=== PATIENT | male | born 1955 | race Caucasian/White ===

== ENCOUNTER 2020-03-12 13:49 | Inpatient (IN) | payer MEDICAID ==
[2020-03-12] MEDS ORDERED: Sodium Chloride 0.9% 10 ML Syringe FLUSH PRN (14:19)
--- NOTE | 2020-03-12 14:28 | EDM.PDOC ---
ED HPI GENERAL MEDICAL PROBLEM - General Chief Complaint: Diabetic Complaint Stated Complaint: HIGH BLOOD SUGAR SENT BY ARTEMIO Time Seen by Provider: 03/12/20 14:01 Source of Information: Reports: Patient History Limitations: Reports: No Limitations - History of Present Illness INITIAL COMMENTS - FREE TEXT/NARRATIVE: The patient presents from the walk in clinic for hyperglycemia. His blood sugar was elevated at 735. He says this all started about 3 weeks ago. He noticed he was thirsty and urinating a lot. He went to the clinic today because he thought he had trouble with his prostate. He was urinating so much. He also has been very weak, tired and short of breath at times. He has no medical problems. He had a hemorrhoidectomy a couple years ago. He has 2 brothers who have diabetes. He is not sure what type. One takes shots and the other does not. He has no fever, chills, cough, congestion, runny nose, chest pain, shortness of breath, abdominal pain, nausea or vomiting. Onset: Gradual Duration: Week(s): Severity: Moderate Improves with: Reports: None Worsens with: Reports: None Associated Symptoms: Reports: No Other Symptoms - Related Data Allergies Allergy/AdvReac Type Severity Reaction Status Date / Time morphine Allergy Nausea and Verified 03/12/20 14:06 Vomiting Home Meds: Home Meds . [No Known Home Meds] 03/12/20 [History] Social & Family History - Tobacco Use Smoking Status *Q: Never Smoker ED ROS GENERAL - Review of Systems Review Of Systems: See Below Constitutional: Reports: Weakness, Fatigue. Denies: Fever, Chills HEENT: Reports: No Symptoms Respiratory: Reports: No Symptoms Cardiovascular: Reports: No Symptoms Endocrine: Reports: Fatigue, High Glucose, Polydypsia, Polyuria GI/Abdominal: Reports: No Symptoms : Reports: No Symptoms Musculoskeletal: Reports: No Symptoms ED EXAM GENERAL NO PERIP PULSE - Physical Exam Exam: See Below Exam Limited By: No Limitations General Appearance: Alert, No Apparent Distress Ears: Normal External Exam Nose: Normal Inspection Head: Atraumatic, Normocephalic Neck: Normal Inspection Respiratory/Chest: No Respiratory Distress, Lungs Clear, Normal Breath Sounds Cardiovascular: Regular Rate, Rhythm, No Edema, No Murmur GI/Abdominal: Soft, Non-Tender, No Organomegaly, No Mass Course - Vital Signs Last Recorded V/S: Last Vital Signs Temp 97.1 F 03/12/20 14:02 Pulse 82 03/12/20 14:02 Resp 16 03/12/20 14:02 BP 156/96 H 03/12/20 14:02 Pulse Ox 96 03/12/20 14:02 - Orders/Labs/Meds Orders: Active Orders 24 hr Category Date Time Status Peripheral IV Care [RC] . DIRECTED Care 03/12/20 14:19 Active Lactated Ringers [Ringers, Lactated] 1,000 ml Med 03/12/20 15:32 Active IV .BOLUS Lactated Ringers [Ringers, Lactated] 1,000 ml Med 03/12/20 14:30 Active IV ASDIRECTED Sodium Chloride 0.9% [Saline Flush] Med 03/12/20 14:19 Active 10 ml FLUSH ASDIRECTED PRN Peripheral IV Insertion Adult [OM.PC] Stat Oth 03/12/20 14:19 Ordered Medication Orders Lactated Ringer's (Ringers, Lactated) 1,000 mls @ 1,000 mls/hr IV ASDIRECTED REKHA Last Admin: 03/12/20 14:39 Dose: 1,000 mls/hr Documented by: ANGELIC Lactated Ringer's (Ringers, Lactated) 1,000 mls @ 1,000 mls/hr IV .BOLUS ONE Stop: 03/12/20 16:31 Last Admin: 03/12/20 15:40 Dose: 1,000 mls/hr Documented by: ANGELIC Sodium Chloride (Saline Flush) 10 ml FLUSH ASDIRECTED PRN PRN Reason: Keep Vein Open Last Admin: 03/12/20 14:30 Dose: 10 ml Documented by: ANGELIC Labs: Laboratory Tests 03/12/20 03/12/20 03/12/20 Range/Units 14:28 14:28 14:37 VBG pH 7.37 (7.30-7.40) Serum Osmolality 326 H (280-300) mosm/kg Ketones 5.51 (0.0-0.3) mM COVID-19 (ANGELI) (NEGATIVE) 03/12/20 Range/Units 14:40 VBG pH (7.30-7.40) Serum Osmolality (280-300) mosm/kg Ketones (0.0-0.3) mM COVID-19 (ANGELI) Negative (NEGATIVE) Meds: Medications Generic Name Dose Route Start Last Admin Trade Name Raheelq PRN Reason Stop Dose Admin Lactated Ringer's 1,000 mls @ 1,000 mls/hr 03/12/20 14:30 03/12/20 14:39 Ringers, Lactated IV 1,000 mls/hr ASDIRECTED REKHA Administration Lactated Ringer's 1,000 mls @ 1,000 mls/hr 03/12/20 15:32 03/12/20 15:40 Ringers, Lactated IV 03/12/20 16:31 1,000 mls/hr .BOLUS ONE Administration Sodium Chloride 10 ml 03/12/20 14:19 03/12/20 14:30 Saline Flush FLUSH 10 ml ASDIRECTED PRN Administration Keep Vein Open - Re-Assessments/Exams Free Text/Narrative Re-Assessment/Exam: 03/12/20 16:12 I ordered an IV LR 2L bolus, labs and venous pH. His blood sugar from the clinic was 735. His creatinine was elevated at 1.78. His anion gap was elevated at 25. His Hgb A1c was >14. His UA shows glucose and ketones. 03/12/20 16:14 His pH is 7.37. His ketones are elevated at 5.51. His serum osmolality is 326. I feel he needs to be admitted. I called Dr Sandhu and she will come see the patient. Departure - Departure Time of Disposition: 16:20 Disposition: Admitted As Inpatient 68 Condition: Serious Clinical Impression: Hyperglycemia, Hyperosmolar syndrome, New onset type 2 diabetes mellitus - Discharge Information Referrals: PCP,None [Primary Care Provider] - Forms: ED Department Discharge Sepsis Event Note (ED) - Evaluation Sepsis Screening Result: No Definite Risk - Focused Exam Vital Signs: Vital Signs Temp Pulse Resp BP Pulse Ox 03/12/20 14:02 97.1 F 82 16 156/96 H 96 - My Orders Last 24 Hours: My Active Orders 03/12/20 14:19 Peripheral IV Care [RC] . DIRECTED Sodium Chloride 0.9% [Saline Flush] 10 ml FLUSH ASDIRECTED PRN Peripheral IV Insertion Adult [OM.PC] Stat 03/12/20 14:30 Lactated Ringers [Ringers, Lactated] 1,000 ml IV ASDIRECTED 03/12/20 15:32 Lactated Ringers [Ringers, Lactated] 1,000 ml IV .BOLUS - Assessment/Plan Last 24 Hours: My Active Orders 03/12/20 14:19 Peripheral IV Care [RC] . DIRECTED Sodium Chloride 0.9% [Saline Flush] 10 ml FLUSH ASDIRECTED PRN Peripheral IV Insertion Adult [OM.PC] Stat 03/12/20 14:30 Lactated Ringers [Ringers, Lactated] 1,000 ml IV ASDIRECTED 03/12/20 15:32 Lactated Ringers [Ringers, Lactated] 1,000 ml IV .BOLUS
[2020-03-12] MEDS ORDERED: Lactated Ringers 1,000 ML IV SCH (14:30)
[2020-03-12] MEDS ORDERED: Lactated Ringers 1,000 ML IV ONE (15:32)
[2020-03-12] MEDS ORDERED: Insulin Regular, Human 100 Units/ML 3 ML Vial IV ONE ×2 (16:41→16:46)
--- NOTE | 2020-03-12 17:33 | PCM.HP.2 ---
H&P History of Present Illness - General Date of Service: 03/12/20 Admit Problem/Dx: Admission Diagnosis/Problem Admission Diagnosis/Problem Hyperosmolar non-ketotic state in patient with type 2 diabetes mellitus - History of Present Illness Initial Comments - Free Text/Narative: This is a 64-year-old male with no past medical history comes to the emergency department referred from outpatient clinic after being found with severe hyperglycemia. As per patient for the past week or so he has been having severe polydipsia and polyuria associated with weight loss and fatigue for which brother has been telling him to see somebody however he did not follow this recommendation until today States he did have one episode of vomiting Denies fever, chills, chest pain, palpitations, shortness of breath, cough, sputum production, indigestion, constipation, diarrhea, painful burning ur ination, rashes. - Related Data Allergies/Adverse Reactions: Allergies Allergy/AdvReac Type Severity Reaction Status Date / Time morphine AdvReac Nausea and Verified 03/12/20 16:46 Vomiting Home Medications: Home Meds . [No Known Home Meds] 03/12/20 [History] Social & Family History - Tobacco Use Smoking Status *Q: Never Smoker H&P Review of Systems - Review of Systems: Review Of Systems: See Below General: Reports: Malaise, Weakness, Fatigue, Weight Loss. Denies: Fever, Chills, Night Sweats, Diaphoresis, Decreased Appetite, Weight Gain HEENT: Denies: Post Nasal Drip, Sinus Congestion, Sore Throat, Vertigo, Visual Changes Pulmonary: Denies: Shortness of Breath, Wheezing, Pleuritic Chest Pain, Cough, Sputum, Hemoptysis Cardiovascular: Denies: Chest Pain, Palpitations, Dyspnea on Exertion, Orthopnea, PND, Edema, Lightheadedness, Syncope, Claudication Gastrointestinal: Reports: Decreased Appetite, Nausea, Vomiting. Denies: Abdominal Pain, Anorexia, Constipation, Diarrhea, Distension, Flatus, Hematemesis, Hematochezia Genitourinary: Reports: Frequency. Denies: Dysuria, Burning, Pain, Urgency, Incontinence, Hematuria, Discharge Musculoskeletal: Denies: Joint Pain, Joint Swelling, Muscle Pain, Muscle Stiffness Skin: Denies: Cyanosis, Jaundice, Mottled, Pallor Psychiatric: Denies: Depression, Mood Lability, Anxiety Neurological: Denies: Dizziness, Headache, Numbness, Paresthesia Hematologic/Lymphatic: Denies: Easy Bleeding, Easy Bruising Exam - Exam Exam: See Below - Vital Signs Vital Signs: Last Vital Signs Temp 97.1 F 03/12/20 14:02 Pulse 82 03/12/20 14:02 Resp 16 03/12/20 14:02 BP 156/96 H 03/12/20 14:02 Pulse Ox 96 03/12/20 14:02 Weight: 77.111 kg - Exam General: Alert, Oriented, Cooperative. No: Mild Distress HEENT: Conjunctiva Clear, EACs Clear, EOMI, Hearing Intact. No: Mucosa Moist & Peck (dry without lesions) Neck: Supple, Trachea Midline, +2 Carotid Pulse wo Bruit, Full Range of Motion. No: Lymphadenopathy Lungs: Clear to Auscultation, Normal Respiratory Effort. No: Decreased Breath Sounds, Crackles, Rales, Rhonchi, Rub, Stridor, Wheezing Cardiovascular: Regular Rate, Regular Rhythm. No: Systolic Murmur, Diastolic Murmur, Rubs, Gallop/S3, Gallop/S4 GI/Abdominal Exam: Normal Bowel Sounds, Soft, Non-Tender, No Organomegaly. No: Distended, Guarding, Rigid, Rebound Extremities: Normal Inspection, Normal Range of Motion, Non-Tender, No Pedal Edema, Normal Capillary Refill Peripheral Pulses: 2+: Radial (L), Radial (R), Dorsalis Pedis (L), Dorsalis Pedis (R) Skin: Warm, Dry Neuro Extensive - Mental Status: Oriented x3 Psychiatric: Alert, Normal Affect, Normal Mood - Patient Data Result Diagrams: 03/12/20 14:28 Sepsis Event Note - Evaluation Sepsis Screening Result: No Definite Risk - Problem List (1) Ketosis SNOMED Code(s): 8045061 ICD Code: E88.89 - OTHER SPECIFIED METABOLIC DISORDERS Status: Acute Current Visit: Yes (2) Acute kidney injury SNOMED Code(s): 68181197, 60576000 ICD Code: N17.9 - ACUTE KIDNEY FAILURE, UNSPECIFIED Status: Acute Current Visit: Yes (3) Hyperosmolar syndrome SNOMED Code(s): 64443670, 71298823 ICD Code: E87.0 - HYPEROSMOLALITY AND HYPERNATREMIA Status: Acute Current Visit: Yes (4) New onset type 2 diabetes mellitus SNOMED Code(s): 38882381 ICD Code: E11.9 - TYPE 2 DIABETES MELLITUS WITHOUT COMPLICATIONS Status: Acute Current Visit: Yes Problem List Initiated/Reviewed/Updated: Yes Assessment/Plan Comment:: ASSESSMENT No past medical history Came in with a week of polyuria, polydipsia, weight loss and fatigue Went to outpatient clinic where blood work was performed, Glucose 735, chloride 89, CO2 27, BUN 24, creatinine 1.78, GFR 39, anion gap of 25 Glucosuria above 540 ketones in urine Hemoglobin A1c greater than 14 Sent to the emergency department for management Upon arrival to the emergency department patient had a blood pressure of 156/96, heart rate of 82, temp 97.1, pulse ox 96% Found to be volume depleted Given 2 L of LR New labs were obtained with an osmolality of 326, ketones of 5.51 and a venous pH of 7.37 Meets criteria for HHS without acidosis Patient with mild hypovolemia and normal corrected sodium, K normal PLAN Patient with mild hypovolemia and normal corrected sodium Continue half NS at 250 mL's per hour as patient is not severely dehydrated When serum glucose reaches 300 will change to 5% dextrose with half NS at 150 mL's per hour 30 mEq of KCl will be added to each liter of IV fluids with a goal K level be tween 4 and 5 mEq 0.1 units/kg insulin IV bolus 0.1 units/kg/h IV insulin drip Once serum glucose reaches 300 will reduce insulin drip to 0.02 units/kg/h Goal glucose between 250 and 300 Check BMP, mag and false every 4 hours Accu-Chek every hour Continue IV insulin drip for 2 to 4 hours after SQ insulin has been started to ensure adequate plasma insulin levels Since patient is insulin naive will start insulin at 0.5units/kg/day Lipid panel in AM Spot protein and creatinine in urine NPO PROPHYLAXIS DVTcompression stockings GInot indicated CODE STATUS: FULL CODE DISPOSITION: Patient will be admitted to ICU for insulin drip, and HHS protocol. Will start on subcutaneous insulin when indicated and start patient on diet, after this he may be transferred out of the ICU to medical floor Hospital stay likely between 48 to 72 hours. - Mortality Measure Prognosis:: Good
[2020-03-12] MEDS ORDERED: Ondansetron 4 MG/2 ML SDV IV PRN (18:30)
[2020-03-12] MEDS ORDERED: Ondansetron 4 MG Tab.DIS PO PRN (18:30)
[2020-03-12] MEDS: D5 1/2 NS w/ 20 mEq/L KCl 1,000 ML IV SCH (19:31)
[2020-03-12] MEDS ORDERED: Insulin Glarg,Human.Rec.Analog 100 Unit/ML SUBCUT SCH (21:00)
[2020-03-12] MEDS ORDERED: Cyclobenzaprine 10 MG Tab PO PRN (21:10)
[2020-03-13] MEDS ORDERED: Sodium Chloride 0.45% with KCl 1,000 ML IV SCH (02:45)
[2020-03-13] MEDS: D5 1/2 NS w/ 20 mEq/L KCl 1,000 ML IV SCH (05:03)
[2020-03-13] MEDS: Insulin Lispro 100 Units/ML 3 ML Vial SUBCUT SCH ×3 (07:55→17:41)
[2020-03-13] MEDS ORDERED: Acetaminophen 325 MG Tab PO PRN (10:15)
[2020-03-13] MEDS ORDERED: Insulin Glarg,Human.Rec.Analog 100 Unit/ML SUBCUT ONE (10:30)
[2020-03-13] MEDS ORDERED: Potassium Phosphates 30 MMOLE in Sodium Chloride 0.9% 500 ML IV ONE (10:30)
[2020-03-13] MEDS ORDERED: Insulin Lispro 100 Units/ML 3 ML Vial SUBCUT STA ×2 (15:08→15:16)
--- NOTE | 2020-03-13 19:18 | PCM.PN ---
- General Info Date of Service: 03/13/20 Subjective Update: Slept OK BM yesterday No complaints - Patient Data Vitals - Most Recent: Last Vital Signs Temp 97 F 03/13/20 16:00 Pulse 82 03/12/20 14:02 Resp 18 03/13/20 16:00 BP 117/79 03/13/20 16:00 Pulse Ox 98 03/13/20 16:00 Weight - Most Recent: 77.111 kg - Exam General: Alert, Oriented, Cooperative, No Acute Distress HEENT: Pupils Equal, Pupils Reactive, EOMI, Mucous Membr. Moist/[place] Neck: Supple, Trachea Midline, No JVD, No Thyromegaly, +2 Carotid Pulse wo Bruit. No: Lymphadenopathy Lungs: Clear to Auscultation, Normal Respiratory Effort. No: Decreased Breath Sounds, Crackles, Rales, Rhonchi, Rub, Stridor, Wheezing Cardiovascular: Regular Rate, Regular Rhythm. No: Murmurs, Gallops, Rubs GI/Abdominal Exam: Normal Bowel Sounds, Soft, Non-Tender, No Organomegaly. No: Distended, Guarding, Rigid, Rebound Back Exam: Normal Inspection, Full Range of Motion. No: CVA Tenderness (L), CVA Tenderness (R) Extremities: Normal Inspection, Normal Range of Motion, Non-Tender, No Pedal Edema, Normal Capillary Refill Peripheral Pulses: 2+: Radial (L), Radial (R), Dorsalis Pedis (L), Dorsalis Pedis (R) Skin: Warm, Dry Neurological: No New Focal Deficit Psy/Mental Status: Normal Affect, Normal Mood Sepsis Event Note - Evaluation Sepsis Screening Result: No Definite Risk - Problem List & Annotations (1) New onset type 2 diabetes mellitus SNOMED Code(s): 94888428 Code(s): E11.9 - TYPE 2 DIABETES MELLITUS WITHOUT COMPLICATIONS Status: Acute Current Visit: Yes (2) Hypophosphatemia SNOMED Code(s): 4243834 Code(s): E83.39 - OTHER DISORDERS OF PHOSPHORUS METABOLISM Status: Acute Current Visit: Yes (3) Dyslipidemia SNOMED Code(s): 425347602 Code(s): E78.5 - HYPERLIPIDEMIA, UNSPECIFIED Status: Acute Current Visit: Yes (4) Ketosis SNOMED Code(s): 6618972 Code(s): E88.89 - OTHER SPECIFIED METABOLIC DISORDERS Status: Acute Current Visit: Yes (5) Acute kidney injury SNOMED Code(s): 76676066, 97923773 Code(s): N17.9 - ACUTE KIDNEY FAILURE, UNSPECIFIED Status: Acute Current Visit: Yes (6) Hyperosmolar syndrome SNOMED Code(s): 44760027, 31268952 Code(s): E87.0 - HYPEROSMOLALITY AND HYPERNATREMIA Status: Acute Current Visit: Yes (7) Hypertension SNOMED Code(s): 34887929 Code(s): I10 - ESSENTIAL (PRIMARY) HYPERTENSION Status: Acute Current Visit: Yes - Problem List Review Problem List Initiated/Reviewed/Updated: Yes - Assessment Assessment:: Admission 03/12/20 No past medical history Came in with a week of polyuria, polydipsia, weight loss and fatigue Went to outpatient clinic where blood work was performed, Glucose 735, chloride 89, CO2 27, BUN 24, creatinine 1.78, GFR 39, anion gap of 25 Glucosuria above 540 ketones in urine Hemoglobin A1c greater than 14 Sent to the emergency department for management Upon arrival to the emergency department patient had a blood pressure of 156/96, heart rate of 82, temp 97.1, pulse ox 96% Found to be volume depleted Given 2 L of LR New labs were obtained with an osmolality of 326, ketones of 5.51 and a venous pH of 7.37 Meets criteria for HHS without acidosis Patient with mild hypovolemia and normal corrected sodium, K normal PLAN Patient with mild hypovolemia and normal corrected sodium Continue half NS at 250 mL's per hour as patient is not severely dehydrated When serum glucose reaches 300 will change to 5% dextrose with half NS at 150 mL's per hour 30 mEq of KCl will be added to each liter of IV fluids with a goal K level between 4 and 5 mEq 0.1 units/kg insulin IV bolus 0.1 units/kg/h IV insulin drip Once serum glucose reaches 300 will reduce insulin drip to 0.02 units/kg/h Goal glucose between 250 and 300 Check BMP, mag and false every 4 hours Accu-Chek every hour Continue IV insulin drip for 2 to 4 hours after SQ insulin has been started to ensure adequate plasma insulin levels Since patient is insulin naive will start insulin at 0.5units/kg/day Lipid panel in AM Spot protein and creatinine in urine NPO 03/13/20 VS trend BP 139-148/71-74 HR 73-80 Tmax 98.8 SatO2 > 96% on RA Labs: WBC is down from 9.23-8.37 Sodium up from 134-139 GFR up from 39 to greater than 60 Glucose down from 735-211 Phosphorus down from 3.2-2.1 Magnesium stable at 1.8 Lipid panel: Cholesterol 184, LDL 124, HDL 45, triglycerides 88 Ketones down from 5.51-0.01 Insulin drip and off at 9: 45 AM ASCVD risk is 23.4% Off insulin drip and started on diet Insulin regimen: 24u Lantus and 4u Lispro - Plan Plan:: New onset diabetes mellitus, HbA1c > 14% 30 units at bedtime of Lantus, give 6 units now 4 units of lispro before meals plug assembler Glucose checks before meals and 2 hours after each meal Patient education Microalbumin and creatinine and urine ROGER 65 antibodies Diabetic diet Malnutrition screen Discontinue IVF Hypophosphatemia Potassium phosphate 30 mmol IV stat Dyslipidemia Start rosuvastatin 20 mg daily Hyperosmolar state, resolved Diabetic ketoacidosis, resolved Acute kidney injury, resolved PROPHYLAXIS DVTambulation GInot indicated CODE STATUS: FULL CODE DISPOSITION: Patient will remain admitted for insulin adjustments. plug assembler in AM.
[2020-03-13] MEDS ORDERED: Insulin Glarg,Human.Rec.Analog 100 Unit/ML SUBCUT SCH (21:00)
[2020-03-14] MEDS: Insulin Lispro 100 Units/ML 3 ML Vial SUBCUT SCH ×2 (06:33→11:51)
--- NOTE | 2020-03-14 13:46 | PCM.DCSUM1 ---
Discharge Summary - Hospital Course HPI Initial Comments: This is a 64-year-old male with no past medical history comes to the emergency department referred from outpatient clinic after being found with severe hyperglycemia. As per patient for the past week or so he has been having severe polydipsia and polyuria associated with weight loss and fatigue for which brother has been telling him to see somebody however he did not follow this recommendation until today States he did have one episode of vomiting Denies fever, chills, chest pain, palpitations, shortness of breath, cough, sputum production, indigestion, constipation, diarrhea, painful burning urination, rashes. Diagnosis: Stroke: No - Discharge Data Discharge Date: 03/14/20 Discharge Disposition: Home, Self-Care 01 Condition: Good - Referral to Home Health Primary Care Physician: PCP None - Patient Summary/Data Consults: Consultations 03/14/20 10:01 Consult to Diabetic Nurse Specialist [CONS] Routine Hospital Course: Admission 03/12/20 No past medical history Came in with a week of polyuria, polydipsia, weight loss and fatigue Went to outpatient clinic where blood work was performed, Glucose 735, chloride 89, CO2 27, BUN 24, creatinine 1.78, GFR 39, anion gap of 25 Glucosuria above 540 ketones in urine Hemoglobin A1c greater than 14 Sent to the emergency department for management Upon arrival to the emergency department patient had a blood pressure of 156/96, heart rate of 82, temp 97.1, pulse ox 96% Found to be volume depleted Given 2 L of LR New labs were obtained with an osmolality of 326, ketones of 5.51 and a venous pH of 7.37 Meets criteria for HHS without acidosis Patient with mild hypovolemia and normal corrected sodium, K normal PLAN Patient with mild hypovolemia and normal corrected sodium Continue half NS at 250 mL's per hour as patient is not severely dehydrated When serum glucose reaches 300 will change to 5% dextrose with half NS at 150 mL's per hour 30 mEq of KCl will be added to each liter of IV fluids with a goal K level between 4 and 5 mEq 0.1 units/kg insulin IV bolus 0.1 units/kg/h IV insulin drip Once serum glucose reaches 300 will reduce insulin drip to 0.02 units/kg/h Goal glucose between 250 and 300 Check BMP, mag and false every 4 hours Accu-Chek every hour Continue IV insulin drip for 2 to 4 hours after SQ insulin has been started to ensure adequate plasma insulin levels Since patient is insulin naive will start insulin at 0.5units/kg/day Lipid panel in AM Spot protein and creatinine in urine NPO 03/13/20 VS trend BP 139-148/71-74 HR 73-80 Tmax 98.8 SatO2 > 96% on RA Labs: WBC is down from 9.23-8.37 Sodium up from 134-139 GFR up from 39 to greater than 60 Glucose down from 735-211 Phosphorus down from 3.2-2.1 Magnesium stable at 1.8 Lipid panel: Cholesterol 184, LDL 124, HDL 45, triglycerides 88 Ketones down from 5.51-0.01 Insulin drip and off at 9: 45 AM ASCVD risk is 23.4% Off insulin drip and started on diet Insulin regimen: 24u Lantus and 4u Lispro 03/14/2020 -day of discharge - Blood sugars ranging from 137-274. -Lantus 30 units at bedtime -Increase Humalog to 8 units before meals -Seen by consumer educator today -Will be discharged with both long-acting and short acting insulin -Tolerating a diabetic diet well. - Patient Instructions Diet: Diabetic Diet Activity: As Tolerated Driving: Do Not Drive Showering/Bathing: May Shower Notify Provider of: Nausea and/or Vomiting Other/Special Instructions: Follow-up with your primary care provider next week. You will need outpatient diabetic education. Check blood sugars at least 4 times a day, before meals and bedtime, and anytime you do not feel well. - Discharge Plan *PRESCRIPTION DRUG MONITORING PROGRAM REVIEWED*: No *COPY OF PRESCRIPTION DRUG MONITORING REPORT IN PATIENT ELENA: No Prescriptions/Med Rec: Aspirin [Aspir 81] 81 mg PO DAILY #30 tablet. Rosuvastatin [Crestor] 10 mg PO DAILY #30 tab Pen Needle, Diabetic [Burtrum] 1 each MC QID #100 dis.needle Home Medications: Home Meds Aspirin [Aspir 81] 81 mg PO DAILY #30 tablet. 03/14/20 [Rx] Insulin Glarg,Human.Rec.Analog [Lantus] 30 unit SUBCUT BEDTIME #0 ml 03/14/20 [Rx] Insulin Lispro [HumaLOG] 8 unit SUBCUT TIDMEALS vial 03/14/20 [Rx] Pen Needle, Diabetic [Burtrum] 1 each QID #100 dis.needle 03/14/20 [Rx] Rosuvastatin [Crestor] 10 mg PO DAILY #30 tab 03/14/20 [Rx] Oxygen Therapy Mode: Room Air Patient Handouts: Type 2 Diabetes Mellitus, Diagnosis, Adult, Preventing Hypoglycemia, Diabetic Ketoacidosis, Hyperglycemia, [id number] Referrals: PCP,None [Primary Care Provider] - - Discharge Summary/Plan Comment DC Time >30 min.: Yes Discharge Summary/Plan Comment: Discharged home in good condition. Patient is from [place] and plans to fly home tomorrow. Follow-up with his primary care provider and consumer educator. - General Info Date of Service: 03/14/20 Admission Dx/Problem (Free Text: Admission Diagnosis/Problem Admission Diagnosis/Problem Hyperosmolar non-ketotic state in patient with type 2 diabetes mellitus Subjective Update: Patient states he is feeling well. Blood sugars have been adequately controlled with 1 blood sugar at 270 that was corrected. He has had diabetic education. Functional Status: Reports: Pain Controlled - Review of Systems General: Reports: No Symptoms HEENT: Reports: No Symptoms Pulmonary: Reports: No Symptoms Cardiovascular: Reports: No Symptoms Gastrointestinal: Reports: No Symptoms Musculoskeletal: Reports: No Symptoms Neurological: Reports: No Symptoms Psychiatric: Reports: No Symptoms - Patient Data Vitals - Most Recent: Last Vital Signs Temp 97.2 F 03/14/20 08:19 Pulse 62 03/14/20 08:19 Resp 16 03/14/20 08:19 BP 141/73 H 03/14/20 08:19 Pulse Ox 97 03/14/20 08:19 Weight - Most Recent: 77.564 kg I&O - Last 24 hours: Intake & Output 03/13/20 03/14/20 03/14/20 22:59 06:59 14:59 Intake Total 3587 Output Total 200 Balance 3387 Lab Results - Last 24 hrs: Laboratory Results - last 24 hr 03/13/20 03/13/20 03/13/20 Range/Units 14:15 15:05 16:09 WBC (4.23-9.07) K/mm3 RBC (4.63-6.08) M/mm3 Hgb (13.7-17.5) gm/dl Hct (40.1-51.0) % MCV (79.0-92.2) fl MCH (25.7-32.2) pg MCHC (32.2-35.5) g/dl RDW Std Deviation (35.1-43.9) fL Plt Count (163-337) K/mm3 MPV (9.4-12.3) fl Neut % (Auto) (34.0-67.9) % Lymph % (Auto) (21.8-53.1) % [place] % (Auto) (5.3-12.2) % Eos % (Auto) (0.8-7.0) Baso % (Auto) (0.1-1.2) % Neut # (Auto) (1.78-5.38) K/mm3 Lymph # (Auto) (1.32-3.57) K/mm3 [place] # (Auto) (0.30-0.82) K/mm3 Eos # (Auto) (0.04-0.54) K/mm3 Baso # (Auto) (0.01-0.08) K/mm3 Sodium (136-145) mEq/L Potassium (3.5-5.1) mEq/L Chloride (98-107) mEq/L Carbon Dioxide (21-32) mEq/L Anion Gap (5-15) BUN (7-18) mg/dL Creatinine (0.7-1.3) mg/dL Est Cr Clr Drug Dosing mL/min Estimated GFR (MDRD) (>60) mL/min BUN/Creatinine Ratio (14-18) Glucose (80-115) mg/dL POC Glucose 241 H 274 H (80-115) mg/dL Calcium (8.5-10.1) mg/dL Phosphorus (2.6-4.7) mg/dL Magnesium (1.8-2.4) mg/dl Ur Random Creatinine 108.8 (30.0-125.0) mg/dL Ur Random Microalbumin 3.7 (1.3-20.0) mg/L Microalb/Creat Ratio 3.4 (0-30) mg/g 03/13/20 03/13/20 03/14/20 Range/Units 17:37 21:14 05:22 WBC 5.73 (4.23-9.07) K/mm3 RBC 4.61 L (4.63-6.08) M/mm3 Hgb 13.5 L (13.7-17.5) gm/dl Hct 40.4 (40.1-51.0) % MCV 87.6 (79.0-92.2) fl MCH 29.3 (25.7-32.2) pg MCHC 33.4 (32.2-35.5) g/dl RDW Std Deviation 39.0 (35.1-43.9) fL Plt Count 176 (163-337) K/mm3 MPV 10.2 (9.4-12.3) fl Neut % (Auto) 49.1 (34.0-67.9) % Lymph % (Auto) 41.7 (21.8-53.1) % [place] % (Auto) 6.1 (5.3-12.2) % Eos % (Auto) 2.8 (0.8-7.0) Baso % (Auto) 0.3 (0.1-1.2) % Neut # (Auto) 2.81 (1.78-5.38) K/mm3 Lymph # (Auto) 2.39 (1.32-3.57) K/mm3 [place] # (Auto) 0.35 (0.30-0.82) K/mm3 Eos # (Auto) 0.16 (0.04-0.54) K/mm3 Baso # (Auto) 0.02 (0.01-0.08) K/mm3 Sodium (136-145) mEq/L Potassium (3.5-5.1) mEq/L Chloride (98-107) mEq/L Carbon Dioxide (21-32) mEq/L Anion Gap (5-15) BUN (7-18) mg/dL Creatinine (0.7-1.3) mg/dL Est Cr Clr Drug Dosing mL/min Estimated GFR (MDRD) (>60) mL/min BUN/Creatinine Ratio (14-18) Glucose (80-115) mg/dL POC Glucose 241 H 250 H (80-115) mg/dL Calcium (8.5-10.1) mg/dL Phosphorus (2.6-4.7) mg/dL Magnesium (1.8-2.4) mg/dl Ur Random Creatinine (30.0-125.0) mg/dL Ur Random Microalbumin (1.3-20.0) mg/L Microalb/Creat Ratio (0-30) mg/g 03/14/20 03/14/20 03/14/20 Range/Units 05:22 06:18 11:50 WBC (4.23-9.07) K/mm3 RBC (4.63-6.08) M/mm3 Hgb (13.7-17.5) gm/dl Hct (40.1-51.0) % MCV (79.0-92.2) fl MCH (25.7-32.2) pg MCHC (32.2-35.5) g/dl RDW Std Deviation (35.1-43.9) fL Plt Count (163-337) K/mm3 MPV (9.4-12.3) fl Neut % (Auto) (34.0-67.9) % Lymph % (Auto) (21.8-53.1) % [place] % (Auto) (5.3-12.2) % Eos % (Auto) (0.8-7.0) Baso % (Auto) (0.1-1.2) % Neut # (Auto) (1.78-5.38) K/mm3 Lymph # (Auto) (1.32-3.57) K/mm3 [place] # (Auto) (0.30-0.82) K/mm3 Eos # (Auto) (0.04-0.54) K/mm3 Baso # (Auto) (0.01-0.08) K/mm3 Sodium 138 (136-145) mEq/L Potassium 4.0 (3.5-5.1) mEq/L Chloride 104 (98-107) mEq/L Carbon Dioxide 28 (21-32) mEq/L Anion Gap 10.0 (5-15) BUN 21 H (7-18) mg/dL Creatinine 0.8 (0.7-1.3) mg/dL Est Cr Clr Drug Dosing 101.97 mL/min Estimated GFR (MDRD) > 60 (>60) mL/min BUN/Creatinine Ratio 26.3 H (14-18) Glucose 226 H (80-115) mg/dL POC Glucose 219 H 150 H (80-115) mg/dL Calcium 8.2 L (8.5-10.1) mg/dL Phosphorus 3.1 (2.6-4.7) mg/dL Magnesium 1.9 (1.8-2.4) mg/dl Ur Random Creatinine (30.0-125.0) mg/dL Ur Random Microalbumin (1.3-20.0) mg/L Microalb/Creat Ratio (0-30) mg/g Med Orders - Current: Current Medications Acetaminophen (Tylenol) 650 mg PO Q4H PRN PRN Reason: Pain Last Admin: 03/13/20 10:28 Dose: 650 mg Documented by: Cyclobenzaprine HCl (Flexeril) 5 mg PO BEDTIME PRN PRN Reason: Pain Last Admin: 03/12/20 21:18 Dose: 5 mg Documented by: Insulin Glargine (Lantus) 30 unit SUBCUT BEDTIME REKHA Last Admin: 03/13/20 21:16 Dose: 30 units Documented by: Insulin Human Lispro (Humalog) 8 unit SUBCUT TIDMEALS [facility] Last Admin: 03/14/20 11:51 Dose: 8 units Documented by: Ondansetron HCl (Zofran Odt) 4 mg PO Q6H PRN PRN Reason: nausea, able to take PO Ondansetron HCl (Zofran) 4 mg IV Q6H PRN PRN Reason: Nausea/Vomiting Sodium Chloride (Saline Flush) 10 ml FLUSH ASDIRECTED PRN PRN Reason: Keep Vein Open Last Admin: 03/12/20 14:30 Dose: 10 ml Documented by: Discontinued Medications Lactated Ringer's (Ringers, Lactated) 1,000 mls @ 1,000 mls/hr IV ASDIRECTED [facility] Last Admin: 03/12/20 14:39 Dose: 1,000 mls/hr Documented by: Lactated Ringer's (Ringers, Lactated) 1,000 mls @ 1,000 mls/hr IV .BOLUS ONE Stop: 03/12/20 16:31 Last Admin: 03/12/20 15:40 Dose: 1,000 mls/hr Documented by: Insulin Human Regular 100 unit (/ Sodium Chloride) 100 mls @ 7.711 mls/hr IV TITRATE REKHA; Protocol Potassium Chloride 30 meq/ (Sodium Chloride) 1,015 mls @ 250 mls/hr IV ASDIRECTED [facility] Insulin Human Regular 100 unit (/ Sodium Chloride) 100 mls @ 7.711 mls/hr IV TITRATE REKHA; Protocol Last Titration: 03/13/20 11:04 Dose: 0 units/kg/hr, 0 mls/hr Documented by: Potassium Chloride 30 meq/ (Sodium Chloride) 1,015 mls @ 250 mls/hr IV Q4H REKHA Last Admin: 03/12/20 17:30 Dose: 250 mls/hr Documented by: Potassium Chloride/Dextrose/Sod Cl (D5 1/2 Ns W/ 20 Meq/L Kcl) 1,000 mls @ 150 mls/hr IV ASDIRECTED [facility] Last Infusion: 03/13/20 08:02 Dose: 0 mls/hr Documented by: Potassium Chloride/Sodium Chloride (1/2 Ns With 20 Meq Kcl) 1,000 mls @ 250 mls/hr IV ASDIRECTED REKHA Last Admin: 03/13/20 02:51 Dose: 250 mls/hr Documented by: Potassium Phosphate 30 mmole/ (Sodium Chloride) 510 mls @ 102 mls/hr IV ONETIME ONE Stop: 03/13/20 15:29 Last Admin: 03/13/20 10:07 Dose: 102 mls/hr Documented by: Insulin Glargine (Lantus) 24 unit SUBCUT BEDTIME REKHA Last Admin: 03/12/20 21:03 Dose: 24 units Documented by: Insulin Glargine (Lantus) 6 unit SUBCUT ONETIME ONE Stop: 03/13/20 10:31 Last Admin: 03/13/20 10:04 Dose: 6 units Documented by: Insulin Human Lispro (Humalog) 4 unit SUBCUT TIDMEALS REKHA Last Admin: 03/13/20 11:43 Dose: 4 units Documented by: Insulin Human Lispro (Humalog) 4 unit SUBCUT NOW STA Stop: 03/13/20 15:17 Last Admin: 03/13/20 15:21 Dose: 4 units Documented by: Insulin Human Regular (Humulin R) 8 unit IV ONETIME ONE Stop: 03/12/20 16:42 Last Admin: 03/12/20 17:15 Dose: Not Given Documented by: Insulin Human Regular (Humulin R) 8 unit IV ONETIME ONE Stop: 03/12/20 16:47 Last Admin: 03/12/20 17:09 Dose: 8 unit Documented by: - Exam General: Reports: Alert, Oriented HEENT: Reports: Pupils Equal, Mucous Membr. Moist/[place] Neck: Reports: Supple Lungs: Reports: Clear to Auscultation, Normal Respiratory Effort Cardiovascular: Reports: Regular Rate, Regular Rhythm GI/Abdominal Exam: Normal Bowel Sounds, Soft, Non-Tender, No Organomegaly, No Distention, No Abnormal Bruit, No Mass, Pelvis Stable Back Exam: Reports: Normal Inspection, Full Range of Motion Extremities: Normal Inspection, Normal Range of Motion, Non-Tender, No Pedal Edema, Normal Capillary Refill Skin: Reports: Warm, Dry, Intact Neurological: Reports: No New Focal Deficit Psy/Mental Status: Reports: Alert, Normal Affect, Normal Mood
== END 2020-03-14 15:50 | disposition home or self-care (01) | DRG 638 ==
LOC: JD.ED 13:49 → JD.ICU 16:50
PROVIDERS: ADMIT Internal Medicine; ATTEND Internal Medicine
DX: E11.10 Type 2 diabetes mellitus with ketoacidosis without coma (principal); N17.9 Acute kidney failure, unspecified; E87.0 Hyperosmolality and hypernatremia; E83.39 Other disorders of phosphorus metabolism; Z88.5 Allergy status to narcotic agent
CPT/HCPCS: 36415; 80048; 80061; 82009; 82043; 82570; 82800; 82962; 83735; 83930; 84100; 84156; 84478; 85025; 86341; 96360; 96361; 99222; 99232; 99239; 99285-25; A9270-GY; J1815-GY; J3480; J3490; J7030; J7040; J7050; J7120; U0002